=== PATIENT | female | born 1985 | race African-American/Black ===

== ENCOUNTER 2016-12-02 07:31 | Emergency (ER) | payer MEDICAID ==
[~2016-12-02] VITALS: Ht 172.7 cm; Wt 58.6 kg
[~2016-12-02 07:31] MED LIST: ADVIL PM; AMOXICILLIN 50500 MG PO; CEPHALEXIN500 M1 PO; DOXYCYCLINE 10100 MG PO; FLAGYL500 MG PO; LORTAB 5/500 501 TAB PO; MACROBID 1100 MG/CAP PO; MOTRIN 400400 MG/TAB PO; MOTRIN 800800 MG/TAB PO; NAPROSYN500 MG PO; NAPROXEN500 MG PO; NO HOME MEDICATIONS; NORCO 325 MG-51 TAB PO; PEN-VEE K500 MG PO; PERCOCET 325 MG1 TA2 PO; PHENERGAN W/CO120 M1 PO; PREDNISONE20 MG PO; TRI-SPRINTEC 281 TAB PO; TUSS PO; ULTRAM 50MG TAB50 MG PO; VENTOLIN0.09 MG IH; ZITHROMAX Z PA250 MG PO; ZOFRAN 4MG T4 MG/TAB PO; ZOFRAN ODT4 MG PO
[2016-12-02 07:34] VITALS: BP 131/91; TEMP 98.5
[2016-12-02] MEDS ORDERED: VENTOLIN0.09 MG IH (07:38)
[2016-12-02 08:16] LABS: BASO % 0.3 % (0.0-2.0); EOS # 0.1 (0.0-0.7); EOS % 1.2 % (0-4.0); GRAN # 5.5 (1.4-6.5); HEMATOCRIT 37.8 % (37.0-47.0); HEMOGLOBIN 12.7 g/dl (12.5-16.0); LYMPH # 1.5 (1.2-3.4); LYMPH % 19.8 % (20.0-51.0); MEAN CELL VOLUME 94 fl (80.0-100.0); MEAN CORPUSCULAR HEMOGLOBIN 32 pg (27.0-31.0); MEAN CORPUSCULAR HGB CONC 34 g/dl (33.0-37.0); MEAN PLATELET VOLUME 12.5 fl (7.4-10.4); MONO # 0.6 (0.1-0.6); MONO % 7.4 % (1.7-9.3); PLATELET COUNT 158 K/mm3 (130-400); RED BLOOD COUNT 4.02 M/mm3 (4.10-5.30); REDCELL DISTRIBUTION WIDTH-CV 14.6 % (11.5-14.5); WHITE BLOOD COUNT 7.7 K/mm3 (4.8-10.8)
[2016-12-02 08:26] LABS: PH 5 (5-8); URINE APPEARANCE Hazy; URINE BACTERIA Rare /hpf; URINE BILIRUBIN Negative (NEGATIVE); URINE BLOOD 2+ (NEGATIVE); URINE COLOR Yellow; URINE GLUCOSE Negative (NEGATIVE); URINE KETONE Trace (NEGATIVE); URINE UROBILINOGEN >=4.0 mg/dL (NEGATIVE); URINE WBC 0-2 /hpf
[2016-12-02 08:31] LABS: ADJUSTED CALCIUM 8.9 mg/dL (8.4-10.2); ALBUMIN 4.1 gm/dL (3.5-5.0); BILIRUBIN,TOTAL 0.4 mg/dL (0.0-1.0); CREATININE, serum 0.68 mg/dL (0.52-1.25); POTASSIUM 3.9 mmol/L (3.4-5.0); TOTAL PROTEIN 7.6 gm/dL (6.4-8.2)
[2016-12-02] MEDS ORDERED: CIPRO 500MG TA500 MG PO (09:18)
[2016-12-02] MEDS ORDERED: FLAGYL500 MG PO (09:18)
[2016-12-02 09:36] VITALS: PULSE 80
== END 2016-12-02 09:37 | disposition home or self-care (01) ==
LOC: COL.ER 07:31
PROVIDERS: Physician Assistant
DX: K52.9 Noninfective gastroenteritis and colitis, unspecified (principal); R93.2 Abnormal findings on diagnostic imaging of liver and biliary tract; R31.9 Hematuria, unspecified
CPT/HCPCS: J1885; J2405; J7030; Q9967

== ENCOUNTER → 2016-12-21 | Outpatient (CLI) | payer MEDICAID ==
[~2016-12-21] MED LIST changes: +CIPRO 500MG TA500 MG PO; +FLORAJEN A20 Billion PO
== END ==
LOC: COL.RAD 07:09
DX: K76.89 Other specified diseases of liver (principal); D18.09 Hemangioma of other sites; R16.0 Hepatomegaly, not elsewhere classified
CPT/HCPCS: A9585

== ENCOUNTER 2017-07-30 10:09 | Emergency (ER) | payer MEDICAID ==
[~2017-07-30] VITALS: Ht 170.2 cm; Wt 52.3 kg
[~2017-07-30 10:09] MED LIST changes: -FLORAJEN A20 Billion PO
[2017-07-30 10:11] VITALS: TEMP 98.2
[2017-07-30] MEDS ORDERED: FLORAJEN A20 Billion PO (10:15)
[2017-07-30 11:06] LABS: BASO % 0.5 % (0.0-2.0); EOS # 0.1 (0.0-0.7); EOS % 0.8 % (0-4.0); GRAN # 5.6 (1.4-6.5); GRAN % 67.7 % (42.2-75.2); HEMOGLOBIN 12.8 g/dl (12.5-16.0); LYMPH # 2.2 (1.2-3.4); LYMPH % 26.2 % (20.0-51.0); MEAN CELL VOLUME 94 fl (80.0-100.0); MEAN CORPUSCULAR HEMOGLOBIN 33 pg (27.0-31.0); MEAN CORPUSCULAR HGB CONC 35 g/dl (33.0-37.0); MEAN PLATELET VOLUME 12.3 fl (7.4-10.4); MONO # 0.4 (0.1-0.6); MONO % 4.6 % (1.7-9.3); PLATELET COUNT 149 K/mm3 (130-400); RED BLOOD COUNT 3.93 M/mm3 (4.10-5.30); REDCELL DISTRIBUTION WIDTH-CV 13.6 % (11.5-14.5); WHITE BLOOD COUNT 8.2 K/mm3 (4.8-10.8)
[2017-07-30 11:14] LABS: ADJUSTED CALCIUM 9.1 mg/dL (8.4-10.2); ALBUMIN 4.3 gm/dL (3.5-5.0); BILIRUBIN,TOTAL 0.4 mg/dL (0.0-1.0); CALCIUM 9.3 mg/dL (8.4-10.2); CREATININE, serum 0.64 mg/dL (0.52-1.25); POTASSIUM 3.9 mmol/L (3.4-5.0); TOTAL PROTEIN 7.6 gm/dL (6.4-8.2)
[2017-07-30 11:40] LABS: PH 7 (5-8); URINE APPEARANCE Clear; URINE BACTERIA Rare /hpf; URINE BILIRUBIN Negative (NEGATIVE); URINE BLOOD Negative (NEGATIVE); URINE COLOR Straw; URINE GLUCOSE Negative (NEGATIVE); URINE KETONE Negative (NEGATIVE); URINE RBC 0-2 /hpf; URINE UROBILINOGEN Negative (NEGATIVE); URINE WBC 0-2 /hpf
[2017-07-30] MEDS ORDERED: ZOFRAN ODT4 MG PO (11:50)
[2017-07-30 12:10] VITALS: BP 125/84; PULSE 68
== END 2017-07-30 12:10 | disposition home or self-care (01) ==
LOC: COL.ER 10:09
PROVIDERS: Physician Assistant
DX: R11.2 Nausea with vomiting, unspecified (principal)
CPT/HCPCS: J2405; J2550; J7030

== ENCOUNTER 2017-09-11 09:57 | Emergency (ER) | payer MEDICAID ==
[~2017-09-11] VITALS: Ht 170.2 cm; Wt 54.5 kg
[~2017-09-11 09:57] MED LIST changes: +FLORAJEN A20 Billion PO
[2017-09-11 09:59] VITALS: TEMP 98.3
[2017-09-11] MEDS ORDERED: GOOD NEIGH1200 MG/15 (10:02)
[2017-09-11 11:13] LABS: COLLECTION METHOD CLEAN CATCH
[2017-09-11 11:20] LABS: MUCOUS Present /lpf; PH 5 (5-8); URINE APPEARANCE Clear; URINE BACTERIA Rare /hpf; URINE BILIRUBIN Negative (NEGATIVE); URINE BLOOD 2+ (NEGATIVE); URINE COLOR Yellow; URINE GLUCOSE Negative (NEGATIVE); URINE KETONE 1+ (NEGATIVE); URINE LEUKOCYTE ESTERASE Negative (NEGATIVE); URINE PROTEIN(semi-quant) Negative (NEGATIVE); URINE UROBILINOGEN Negative (NEGATIVE); URINE WBC 0-2 /hpf
[2017-09-11 11:48] VITALS: BP 120/85; PULSE 71
== END 2017-09-11 11:50 | disposition home or self-care (01) ==
LOC: COL.ER 09:57
PROVIDERS: Physician Assistant
DX: K59.00 Constipation, unspecified (principal); M54.9 Dorsalgia, unspecified; R68.84 Jaw pain; R51 Headache; R11.0 Nausea; J45.909 Unspecified asthma, uncomplicated; F12.10 Cannabis abuse, uncomplicated; F17.210 Nicotine dependence, cigarettes, uncomplicated; Z87.442 Personal history of urinary calculi; Z98.51 Tubal ligation status
CPT/HCPCS: J1885

== ENCOUNTER → 2018-01-04 | Outpatient (CLI) | payer MEDICAID ==
[~2018-01-04] MED LIST changes: +GOOD NEIGH1200 MG/15
== END ==
LOC: COL.RAD 07:30
DX: R16.0 Hepatomegaly, not elsewhere classified (principal)
CPT/HCPCS: A9585

== ENCOUNTER 2018-04-24 04:24 | Emergency (ER) | payer MEDICAID ==
[~2018-04-24] VITALS: Ht 172.7 cm; Wt 59.1 kg
[2018-04-24 04:30] VITALS: TEMP 97.7
[2018-04-24 04:41] LABS: COLLECTION METHOD CLEAN CATCH
[2018-04-24 04:48] LABS: MUCOUS Present /lpf; PH 5 (5-8); SQUAMOUS EPITHELIAL 0-2 /hpf; URINE APPEARANCE Clear; URINE BACTERIA None Seen /hpf; URINE BILIRUBIN Negative (NEGATIVE); URINE BLOOD 3+ (NEGATIVE); URINE COLOR Yellow; URINE GLUCOSE Negative (NEGATIVE); URINE KETONE Negative (NEGATIVE); URINE LEUKOCYTE ESTERASE Trace (NEGATIVE); URINE NITRATE Negative (NEGATIVE); URINE PROTEIN(semi-quant) 1+ (NEGATIVE); URINE RBC >50 /hpf; URINE UROBILINOGEN >=4.0 mg/dL (NEGATIVE)
[2018-04-24] MEDS ORDERED: SEROQUEL 2525 MG/TAB PO (05:02)
[2018-04-24] MEDS ORDERED: MIRALAX 255 GM255 GM PO (05:03)
[2018-04-24] MEDS ORDERED: FLORAJEN A20 Billion PO (05:03)
[2018-04-24 05:04] LABS: BASO % 0.4 % (0.0-2.0); EOS # 0.2 (0.0-0.7); EOS % 1.9 % (0-4.0); GRAN # 6.1 (1.4-6.5); HEMATOCRIT 38.1 % (37.0-47.0); HEMOGLOBIN 12.9 g/dl (12.5-16.0); LYMPH # 3.2 (1.2-3.4); LYMPH % 31.2 % (20.0-51.0); MEAN CELL VOLUME 97 fl (80.0-100.0); MEAN CORPUSCULAR HEMOGLOBIN 33 pg (27.0-31.0); MEAN CORPUSCULAR HGB CONC 34 g/dl (33.0-37.0); MEAN PLATELET VOLUME 12.1 fl (7.4-10.4); MONO # 0.6 (0.1-0.6); MONO % 6.3 % (1.7-9.3); PLATELET COUNT 166 K/mm3 (130-400); RED BLOOD COUNT 3.95 M/mm3 (4.10-5.30)
[2018-04-24 05:18] LABS: ALANINE AMINOTRANSFERASE 20 U/L (9-52); ALBUMIN 3.6 gm/dL (3.5-5.0); ALKALINE PHOSPHATASE 77 U/L (50-136); ANION GAP 11 mmol/L (7-16); AST,SGOT 15 U/L (15-37); BILIRUBIN,TOTAL 0.3 mg/dL (0.0-1.0); BLOOD UREA NITROGEN 11 mg/dL (7-17); C-REACTIVE PROTEIN < 0.5 mg/dL (0.0-0.9); CALCIUM 8.6 mg/dL (8.4-10.2); CARBON DIOXIDE 24 mmol/L (22-30); CHLORIDE 108 mmol/L (98-107); CREATININE, serum 0.69 mg/dL (0.52-1.25); GLUCOSE 103 mg/dL (74-106); LIPASE 78 U/L (23-300); POTASSIUM 3.8 mmol/L (3.4-5.0); SODIUM 144 mmol/L (137-145); TOTAL PROTEIN 7.2 gm/dL (6.4-8.2)
[2018-04-24 06:28] VITALS: BP 120/84; PULSE 79
== END 2018-04-24 06:28 | disposition home or self-care (01) ==
LOC: COL.ER 04:24
PROVIDERS: Emergency Medicine
DX: N94.6 Dysmenorrhea, unspecified (principal); Z87.442 Personal history of urinary calculi; Z98.51 Tubal ligation status
CPT/HCPCS: J1170; J1885; J2405; J7030

== ENCOUNTER 2018-04-25 19:58 | Emergency (ER) | payer MEDICAID ==
[~2018-04-25] VITALS: Ht 172.7 cm; Wt 59.1 kg
[~2018-04-25 19:58] MED LIST changes: +MIRALAX 255 GM255 GM PO; +SEROQUEL 2525 MG/TAB PO
[2018-04-25 20:04] VITALS: BP 123/79; TEMP 98.1
[2018-04-25 21:26] LABS: BASO % 0.2 % (0.0-2.0); EOS # 0.1 (0.0-0.7); EOS % 0.7 % (0-4.0); GRAN # 7.1 (1.4-6.5); GRAN % 72.8 % (42.2-75.2); HEMATOCRIT 34.1 % (37.0-47.0); HEMOGLOBIN 11.9 g/dl (12.5-16.0); LYMPH # 2.1 (1.2-3.4); LYMPH % 21.4 % (20.0-51.0); MEAN CELL VOLUME 94 fl (80.0-100.0); MEAN CORPUSCULAR HEMOGLOBIN 33 pg (27.0-31.0); MEAN CORPUSCULAR HGB CONC 35 g/dl (33.0-37.0); MEAN PLATELET VOLUME 11.9 fl (7.4-10.4); MONO # 0.5 (0.1-0.6); MONO % 4.7 % (1.7-9.3); PLATELET COUNT 162 K/mm3 (130-400); RED BLOOD COUNT 3.62 M/mm3 (4.10-5.30); REDCELL DISTRIBUTION WIDTH-CV 12.8 % (11.5-14.5)
[2018-04-25 21:37] LABS: ALBUMIN 3.5 gm/dL (3.5-5.0); BILIRUBIN,TOTAL 0.5 mg/dL (0.0-1.0); CALCIUM 8.5 mg/dL (8.4-10.2); CREATININE, serum 0.59 mg/dL (0.52-1.25); POTASSIUM 3.6 mmol/L (3.4-5.0)
[2018-04-25 22:07] VITALS: PULSE 63
== END 2018-04-25 22:07 | disposition home or self-care (01) ==
LOC: COL.ER 19:58
PROVIDERS: Physician Assistant
DX: R51 Headache (principal); F17.210 Nicotine dependence, cigarettes, uncomplicated; Z98.51 Tubal ligation status
CPT/HCPCS: J1200; J1885; J2550

== ENCOUNTER 2019-04-16 10:36 | Emergency (ER) | payer MEDICAID ==
[~2019-04-16] VITALS: Ht 172.7 cm; Wt 61.8 kg
[2019-04-16 10:41] VITALS: BP 140/86
[2019-04-16 10:59] LABS: COLLECTION METHOD CLEAN CATCH
[2019-04-16 11:09] LABS: MUCOUS Present /lpf; PH 7 (5-8); URINE APPEARANCE Hazy; URINE BACTERIA Rare /hpf; URINE BILIRUBIN Negative (NEGATIVE); URINE BLOOD 2+ (NEGATIVE); URINE COLOR Yellow; URINE GLUCOSE Negative (NEGATIVE); URINE KETONE Negative (NEGATIVE); URINE LEUKOCYTE ESTERASE Negative (NEGATIVE); URINE NITRATE Negative (NEGATIVE); URINE PROTEIN(semi-quant) Negative (NEGATIVE); URINE UROBILINOGEN Negative (NEGATIVE)
[2019-04-16 12:04] LABS: BASO % 0.3 % (0.0-2.0); EOS # 0.2 (0.0-0.7); GRAN # 4.2 (1.4-6.5); GRAN % 59.5 % (42.2-75.2); HEMOGLOBIN 12.5 g/dl (12.5-16.0); LYMPH # 2.2 (1.2-3.4); LYMPH % 31.4 % (20.0-51.0); MEAN CELL VOLUME 96 fl (80.0-100.0); MEAN CORPUSCULAR HEMOGLOBIN 32 pg (27.0-31.0); MEAN CORPUSCULAR HGB CONC 34 g/dl (33.0-37.0); MEAN PLATELET VOLUME 11.7 fl (7.4-10.4); MONO # 0.4 (0.1-0.6); MONO % 5.5 % (1.7-9.3); PLATELET COUNT 184 K/mm3 (130-400); RED BLOOD COUNT 3.86 M/mm3 (4.10-5.30); REDCELL DISTRIBUTION WIDTH-CV 13.5 % (11.5-14.5)
[2019-04-16 12:05] LABS: STREP SCREEN NEGATIVE
[2019-04-16 12:08] LABS: HEMATOCRIT 36.9 % (37.0-47.0)
[2019-04-16 12:16] LABS: ALBUMIN 3.9 gm/dL (3.5-5.0); BILIRUBIN,TOTAL 0.1 mg/dL (0.0-1.0); C-REACTIVE PROTEIN 0.6 mg/dL (0.0-0.9); CREATININE, serum 0.6 (0.52-1.25); POTASSIUM 3.9 mmol/L (3.4-5.0); TOTAL PROTEIN 7.2 gm/dL (6.4-8.2)
[2019-04-16] MEDS ORDERED: ZOFRAN ODT4 MG PO (13:03)
[2019-04-16 13:44] VITALS: PULSE 55; TEMP 98.1
== END 2019-04-16 13:45 | disposition home or self-care (01) ==
LOC: COL.ER 10:36
PROVIDERS: Family Medicine
DX: E86.0 Dehydration (principal); R11.10 Vomiting, unspecified; F17.210 Nicotine dependence, cigarettes, uncomplicated
CPT/HCPCS: J2405; J7030; J7120

== ENCOUNTER 2020-01-04 08:47 | Emergency (ER) | payer MEDICAID ==
[~2020-01-04] VITALS: Ht 172.7 cm; Wt 65.8 kg
[2020-01-04 09:10] VITALS: BP 118/76; TEMP 98.5
[2020-01-04 10:45] VITALS: PULSE 82
== END 2020-01-04 10:50 | disposition home or self-care (01) ==
LOC: COL.ER 08:47
DX: J06.9 Acute upper respiratory infection, unspecified (principal); F17.210 Nicotine dependence, cigarettes, uncomplicated

== ENCOUNTER 2021-07-25 06:37 | Emergency (ER) | payer MEDICAID ==
[~2021-07-25] VITALS: Ht 172.7 cm; Wt 72.7 kg
[2021-07-25 06:44] VITALS: TEMP 98.9
[2021-07-25 08:45] VITALS: BP 133/88; PULSE 73
== END 2021-07-25 08:54 | disposition home or self-care (01) ==
LOC: COL.ER 06:37
DX: R51.9 Headache, unspecified (principal); T50.B95A Adverse effect of other viral vaccines, initial encounter; F17.210 Nicotine dependence, cigarettes, uncomplicated

== ENCOUNTER 2022-04-09 09:53 | Emergency (ER) | payer MEDICAID ==
[~2022-04-09] VITALS: Ht 172.7 cm; Wt 72.7 kg
[2022-04-09 10:00] VITALS: BP 124/90; PULSE 88; TEMP 98.5
[2022-04-09] MEDS ORDERED: SEROQUEL50 MG PO (10:36)
== END 2022-04-09 10:44 | disposition home or self-care (01) ==
LOC: COL.ER 09:53
DX: H61.21 Impacted cerumen, right ear (principal); F17.210 Nicotine dependence, cigarettes, uncomplicated